=== PATIENT | male | born 1980 | race Caucasian/White ===

== ENCOUNTER 2019-09-08 00:02 | Emergency (ER) | payer OTHER ==
[~2019-09-08] VITALS: Ht 172.7 cm; Wt 68.5 kg
[2019-09-08 00:12] VITALS: Ht 172.7 cm; Wt 68.5 kg
[2019-09-08 01:50] VITALS: BP 140/95
== END 2019-09-08 01:47 | disposition home or self-care (01) ==
LOC: ED 00:02
DX: S31.31XA Laceration without foreign body of scrotum and testes, initial encounter (principal); W54.0XXA Bitten by dog, initial encounter; Y93.89 Activity, other specified; Y92.89 Other specified places as the place of occurrence of the external cause; Y99.8 Other external cause status
CPT/HCPCS: 90715; J2001